=== PATIENT | female | born 1990 | race Caucasian/White ===

== ENCOUNTER 2018-10-16 04:10 | Emergency (ER) | payer BC, OTHER ==
--- NOTE | 2018-10-16 05:43 | C.PDOC ---
History Of Present Illness 28 year old female presents with sore throat starting today associated w/ cough and body aches for the past 3 days. Patient notes she has frequent strep infections. She has not taken anything for the symptoms. She is able to swallow without any difficulty. Denies nausea, vomiting, chest pain, SOB, or abdominal pain. Time Seen by Provider: 10/16/18 04:15 Chief Complaint (Nursing): Flu-like Symptoms History Per: Patient History/Exam Limitations: no limitations Onset/Duration Of Symptoms: Hrs Current Symptoms Are (Timing): Still Present Location Of Pain: Throat, Diffuse Myalgias Sick Contacts (Context): None Associated Symptoms: Sore Throat, Cough, Myalgias. denies: Nausea, Vomiting, Other (Chest pain, SOB, abdominal pain) Ear Symptoms: Bilateral: None Recent travel outside of the [place]: No Past Medical History Reviewed: Historical Data, Nursing Documentation, Vital Signs Vital Signs: Last Vital Signs Temp 98.1 F 10/16/18 04:16 Pulse 85 10/16/18 04:16 Resp 17 10/16/18 04:16 BP 129/85 10/16/18 04:16 Pulse Ox 98 10/16/18 04:16 - Medical History PMH: No Chronic Diseases - [facility] Procedures CLOSURE SKIN & SUBCUTANEOUS NEC (06/30/14) TETANUS TOXOID ADMINIST (06/30/14) Family History: States: Unknown Family Hx - Social History Hx Tobacco Use: No Hx Alcohol Use: No Hx Substance Use: No - Immunization History Hx Tetanus Toxoid Vaccination: No Hx Influenza Vaccination: No Hx Pneumococcal Vaccination: No Review Of Systems Constitutional: Negative for: Fever, Chills Eyes: Negative for: Pain, Redness ENT: Positive for: Throat Pain. Negative for: Nose Congestion Cardiovascular: Negative for: Chest Pain, Palpitations Respiratory: Positive for: Cough. Negative for: Shortness of Breath Gastrointestinal: Negative for: Nausea, Vomiting, Diarrhea Genitourinary: Negative for: Dysuria, Hematuria Musculoskeletal: Positive for: Other (Body aches). Negative for: Back Pain Skin: Negative for: Rash Neurological: Negative for: Weakness, Numbness Physical Exam - Physical Exam Appears: Well, Non-toxic, No Acute Distress Skin: Normal Color, Warm, No Rash Head: Atraumatic, Normacephalic Eye(s): bilateral: Normal Inspection, PERRL, EOMI Ear(s): Bilateral: Normal Nose: Other (Inflamed mucosa of nares, enlarged turbinates, clear discharge.) Oral Mucosa: Moist Throat: No Exudate, Other (Injected tonsils, mildly enlarged) Neck: Normal ROM, Supple Chest: Symmetrical Cardiovascular: Rhythm Regular Respiratory: Normal Breath Sounds, No Accessory Muscle Use, Other (Normal inspiratory effort) Gastrointestinal/Abdominal: Soft, No Distention Extremity: Normal ROM (x4) Neurological/Psych: Oriented x3, Normal Speech, Normal Cranial Nerves (Grossly intact) Gait: Steady ED Course And Treatment O2 Sat by Pulse Oximetry: 98 (room air) Pulse Ox Interpretation: Normal Medical Decision Making Medical Decision Making: Flu swab and rapid strep negative. Disposition Counseled Patient/Family Regarding: Studies Performed, Diagnosis, Need For Followup - Disposition Disposition: HOME/ ROUTINE Disposition Time: 05:44 Condition: STABLE Additional Instructions: Take Ibuprofen as directed on labeling for fever and bodyaches. Instructions: Viral Pharyngitis Forms: General Discharge Instructions, [facility] (Thai), Work Excuse - Clinical Impression Clinical Impression: Upper respiratory infection, viral, Pharyngitis - PA / MANAGER PHOTO / Resident Statement MD/DO has reviewed & agrees with the documentation as recorded. - Scribe Statement The provider has reviewed the documentation as recorded by the Scribe Dany Castro All medical record entries made by the Aidanibanabel were at my direction and personally dictated by me. I have reviewed the chart and agree that the record accurately reflects my personal performance of the history, physical exam, medical decision making, and the department course for this patient. I have also personally directed, reviewed, and agree with the discharge instructions and disposition.
[2018-10-16 05:54] VITALS: BP 130/81; PULSE 68; RESP 20; TEMP 98.2
[2018-10-18 23:04] VITALS: O2SAT 98
== END 2018-10-16 05:54 | disposition home or self-care (01) ==
LOC: C.ER 04:10
DX: J02.9 Acute pharyngitis, unspecified (principal)